=== PATIENT | male | born 1990 | race Caucasian/White ===

== ENCOUNTER 2024-04-09 08:27 | Inpatient (IN) ==
--- NOTE | 2024-04-09 08:53 | Emergency Department Note ---
Impression & Plan Seizure, Alcohol withdrawal, Tachycardia, Narcotic addiction ED Provider Note NAME: RADHA ADDISON AGE: 33 SEX: M : 1990 ARRIVES VIA: Ambulance INFORMANT: [Patient][ems, nursing] ED PROVIDER(S): [Braulio Flannery MD] CHIEF COMPLAINT: Seizure HISTORY OF PRESENT ILLNESS: The patient is a 33-year-old male who presents to the ED after a reported seizure. The patient was on his way to the methadone clinic when he began having all over body shaking. The patient is amnestic of the event and still feels somewhat confused although, he thinks things are starting to clear. The patient does have a seizure history, he is to take Keppra, he does not think he took his morning Keppra dose. The patient has had seizures secondary to alcohol withdrawal. He last had alcohol yesterday and he does feel as if he is going through some alcohol withdrawal. There has been no cough or cold, no fever. He currently complains of some lower back pain, there is no headache, no abdominal pain. EMS did give 2 mg of IV Ativan, this seemed to help him greatly. PMHx/PSHx/Social Hx: See Below PHYSICAL EXAM: GENERAL: Patient is in no acute distress. HEENT: No acute trauma, normocephalic atraumatic, mucous membranes moist, no nasal congestion. No obvious tongue bite. NECK: No stridor, no adenopathy, no meningismus, trachea is midline. LUNGS: Clear to auscultation bilaterally, no wheeze, no rhonchi, breath sounds equal. HEART: Tachycardic, regular rhythm, no murmurs. ABDOMEN: Soft, nontender, no peritonitis. EXTREMITIES: No cyanosis, full range of motion of all the joints without pain or difficulty. NEUROLOGIC: No speech slur, awake and alert, no acute motor or sensory deficits, no focal weakness. SKIN: No jaundice, no diaphoresis. DIFFERENTIAL DIAGNOSIS: Seizure, withdrawal, dehydration, electrolyte imbalance, dysrhythmia, medication noncompliance, among others. EMERGENCY DEPARTMENT PROCEDURES: MEDICAL DECISION MAKING: There is no leukocytosis. A mild anemia was seen. There was a normal platelet count. No renal failure or significant electrolyte abnormality. No concerning liver enzyme elevation. Total CK was not elevated making rhabdomyolysis unlikely. ECG showed a sinus tachycardia, no obvious ischemia. Cardiac enzyme testing x 1 was not consistent with acute cardiac injury. Chest x-ray did not show mediastinal widening, pneumonia or pneumothorax. Brain CT showed no acute bleed or mass effect. Alcohol level was elevated at 108. On exam, the patient was tachycardic and seemed slightly agitated. The patient appears to be suffering from alcohol withdrawal. He may have had a seizure from his alcohol withdrawal or from lack of medication compliance. Patient was aggressively managed. He was given a 500 cc saline bolus. He was given a liter of IV saline with multivitamins, thiamine and folate. He was given his typical dose of oral methadone. He received 2000 mg of IV Keppra, he was given 5 mg of IV Valium. The patient is doing well with the medication administered. He presents with seizure-like activity and likely alcohol withdrawal. The patient is in need of a hospital stay. I did speak with case management, the on-call hospitalist has been consulted. Patient does appear to be more comfortable since treatment here in the ED. No further seizure activity noted. Prior/Outside records/notes reviewed: Today's EMS notes describing his presentation and transport to this hospital. ECG per my interpretation: Indication was seizure. The ECG shows a sinus tachycardia with a rate of 110. There is no acute ST elevation, no PVCs but the QTc is 452 Continuous Cardiac Monitoring per my interpretation: An order was placed for continuous cardiac monitoring. The monitor shows a rate of 118 with sinus tachycardia. Imaging/x-ray results per my interpretation: Chest x-ray does not show mediastinal widening, pneumonia or pneumothorax. Chronic Medical/Social conditions affecting care: Narcotic and alcohol abuse, history of seizure Care/Management discussed with: Case management, the on-call hospitalist. Level of care consideration(s): After review of the information above and other included data: --I believe the patient requires escalation of care to admission Critical Care Note: I have personally spent 41 minutes of critical care time in the direct management of this patient. This includes bedside care, interpretation of diagnostic studies, and testing, discussion with consultants, patient, and family members, and other required patient management activities. This 41 minutes is in excess of all separately billable procedures. DISPOSITION: Admission Past Med/Surg History Problem List Narcotic addiction (Acute) Tachycardia (Acute) Alcohol withdrawal (Acute) Seizure (Acute) Alcohol withdrawal Seizure Depression Essential hypertension Methadone dependence Alcohol abuse Medical History Cirrhosis of liver without ascites Pancreatitis Delirium tremens Latent tuberculosis by blood test Suicide attempt Alcohol withdrawal seizure Surgical History S/P repair of hydrocele S/P laparoscopic cholecystectomy Family History Other Diabetes Heart disease Hypertension Social History Smoking Status: Current every day smoker Tobacco Type: Cigarettes Do You Dip or Chew Tobacco: No; Hx Alcohol Use: Yes Alcohol type: hard liquor Hx Substance Use: Yes Last Used Substance: Just Prior to Arrival Last Used Substance Other:: pt on methadone. States he did smoke marijuana recently Preferred Language: Maori Communication Ability: Effective Technology Lab Teacher Required: No Beliefs That Will Affect Care: None Current Living Situation: Family Other Information That Helps Us Care for You: No Feels Safe at Home: Yes Safety Concerns: Feels Safe At This Time Assistive Devices: None Allergies Allergies Allergy/AdvReac Type Severity Reaction Status Date / Time No Known Allergies Allergy Unverified 06/26/11 23:42 Home Meds Home Medications Medication Instructions Recorded Confirmed acamprosate 333 mg tablet,delayed 666 mg PO TID 04/09/24 04/09/24 release albuterol sulfate 90 mcg/actuation 2 puff inhalation Q4H PRN 04/09/24 04/09/24 aerosol inhaler Shortness Of Breath Or Wheezing bupropion HCl 150 mg 24 hr tablet, 150 mg PO DAILY 04/09/24 04/09/24 extended release buspirone 10 mg tablet 10 mg PO BID PRN Anxiety 04/09/24 04/09/24 cyanocobalamin (vitamin B-12) 1,000 mcg PO DAILY 04/09/24 04/09/24 1,000 mcg tablet (Vitamin B-12) famotidine 40 mg tablet 40 mg PO DAILY 04/09/24 04/09/24 furosemide 40 mg tablet 40 mg PO DAILY 04/09/24 04/09/24 gabapentin 600 mg tablet 600 mg PO QID 04/09/24 04/09/24 lactulose 10 gram/15 mL oral 30 ml PO BID PRN Constipation 04/09/24 04/09/24 solution levetiracetam 500 mg tablet 750 mg PO BID 04/09/24 04/09/24 methadone 10 mg/5 mL oral solution 109 mg PO DAILY 04/09/24 04/09/24 metoprolol succinate 25 mg 25 mg PO DAILY 04/09/24 04/09/24 tablet,extended release 24 hr mirtazapine 15 mg tablet 15 mg PO HS 04/09/24 04/09/24 omeprazole 40 mg capsule,delayed 40 mg PO DAILY 04/09/24 04/09/24 release potassium chloride 20 mEq 20 meq PO DAILY 04/09/24 04/09/24 tablet,extended release(part/cryst) sucralfate 100 mg/mL oral 10 ml PO QID 04/09/24 04/09/24 suspension thiamine HCl (vitamin B1) 50 mg 100 mg PO DAILY 04/09/24 04/09/24 tablet Results & Data (ED) Vital Signs Vital Signs - 24 hr 04/09/24 08:44 04/09/24 08:48 04/09/24 08:49 Temperature 36.9 C Temperature Source Temporal Artery Scan Pulse Rate 118 H 117 H 124 H Pulse Rate from SpO2 Sensor Respiratory Rate 20 28 H Respiratory Depth Shallow Blood Pressure 123/86 Blood Pressure Mean 98 Pulse Oximetry 98 Oxygen Delivery Method Room Air Sepsis Recent Fever Within 48 Hours No Sepsis New/Unexplained Change in Mental Status No Sepsis Action Taken by Nursing No Action Required 04/09/24 09:03 04/09/24 09:33 04/09/24 10:00 Temperature Temperature Source Pulse Rate 103 H 104 H 97 H Pulse Rate from SpO2 Sensor 108 H 96 H Respiratory Rate 15 18 20 Respiratory Depth Blood Pressure Blood Pressure Mean Pulse Oximetry 81 L 95 Oxygen Delivery Method Sepsis Recent Fever Within 48 Hours Sepsis New/Unexplained Change in Mental Status Sepsis Action Taken by [facility]itentiary Medications Current Medication List: was personally reviewed by me Laboratory Data Attestation: I reviewed the patient's lab results. 04/09/24 08:40 04/09/24 08:40 Lab Results 04/09/24 Range/Units 08:40 WBC 4.45 L (4.8-10.8) K/ul RBC 3.64 L (4.70-6.10) M/uL Hgb 12.0 L (14.0-18.0) g/dl Hct 36.1 L (42.0-52.0) % MCV 99.2 (80.0-100.0) fL MCH 33.0 (25.0-34.0) pg MCHC 33.2 (32.0-36.0) g/dL RDW Std Deviation 58.9 H (36.4-46.3) fL RDW Coeff of [place] 16.0 H (11.5-14.5) % Plt Count 302 (130-400) K/uL MPV 8.8 L (9.4-12.4) fL Immature Gran % (Auto) 0.4 % Neut % (Auto) 66.1 % Lymph % (Auto) 28.1 % [place] % (Auto) 4.3 % Eos % (Auto) 0.9 % Baso % (Auto) 0.2 % Neut # (Auto) 2.94 (1.40-6.50) K/uL Lymph # (Auto) 1.25 (1.20-3.40) K/uL [place] # (Auto) 0.19 (0.11-0.59) K/uL Eos # (Auto) 0.04 (0.00-0.50) K/uL Baso # (Auto) 0.01 (0.00-0.20) K/uL Immature Gran # (Auto) 0.02 (0.01-0.20) K/uL Sodium 143 (136-145) mmol/L Potassium 3.6 (3.5-5.1) mmol/L Chloride 107 (98-107) mmol/L Carbon Dioxide 22 (21-32) mmol/L Anion Gap 14 H (3-11) BUN 5 L (6-23) mg/dl Creatinine 0.68 (0.6-1.4) mg/dl Est Cr Clr Drug Dosing 176.5 ml/min Est GFR ( Amer) 143.4 ml/min Est GFR (Non-Af Amer) 123.7 ml/min BUN/Creatinine Ratio 7.4 L (10-20) Glucose 153 H (70-99(Fasting)) mg/dl Calcium 9.0 (8.6-10.3) mg/dl Magnesium 1.9 (1.7-2.4) mg/dl Total Bilirubin 0.3 (0.2-1.0) mg/dl AST 39 (13-39) U/L ALT 33 (7-52) U/L Alkaline Phosphatase 89 (34-104) U/L Total Creatine Kinase 217 (30-223) U/L Troponin I High Sens 4.6 (0-20) pg/ml Total Protein 7.5 (6.0-8.3) gm/dl Albumin 4.3 (3.4-5.0) gm/dl Globulin 3.2 (2.5-4.0) gm/dl Albumin/Globulin Ratio 1.3 (0.9-2) Prolactin 14.90 ng/ml Ethyl Alcohol mg/dL 108.1 H (<10.0) mg/dl Administered Medications Pantoprazole Sodium 40 mg/ (Syringe) 10 mls @ 5 mls/min IV DAILY@1100 [facility] Stop: 05/09/24 12:22 Last Admin: 04/09/24 13:05 Dose: 5 mls/min Documented By: SHARLA Phenobarbital Sodium (Phenobarbital Sodium 65 Mg/Ml Vial) 65 mg IV Q6H PRN PRN Reason: AWSS greater than 8 Stop: 04/13/24 23:59 Last Admin: 04/09/24 14:33 Dose: 65 mg Documented By: REHAN Sucralfate (Sucralfate 1 Gm/10 Ml Udc) 1 gm PO QID [facility] Stop: 05/09/24 12:59 Last Admin: 04/09/24 13:05 Dose: 1 gm Documented By: SHARLA Discontinued Medications Diazepam (Diazepam 5 Mg/Ml 10ml Vial) 5 mg IV NOW STA Stop: 04/09/24 08:43 Last Admin: 04/09/24 08:59 Dose: 5 mg Documented By: REHAN Sodium Chloride (Nss) 500 mls @ 999 mls/hr IV .Q31M ONE Stop: 04/09/24 09:12 Last Infusion: 04/09/24 10:05 Dose: Infused Documented By: Admin: 04/09/24 09:00 Dose: 999 mls/hr Documented By: REHAN Multivitamins 10 ml/ Thiamine HCl 100 mg/ Folic Acid 1 mg/Sodium Chloride 1,011.2 mls @ 500 mls/hr IV .Q2H2M ONE Stop: 04/09/24 10:43 Last Infusion: 04/09/24 12:04 Dose: Infused Documented By: Admin: 04/09/24 09:52 Dose: 500 mls/hr Documented By: REHAN Levetiracetam (Levetiracetam 500 Mg/5 Ml Vial) 2,000 mg IV NOW STA Stop: 04/09/24 08:43 Last Admin: 04/09/24 08:59 Dose: 2,000 mg Documented By: REHAN Methadone HCl (Methadone Oral Soln 2 Mg/Ml) 109 mg PO NOW ONE Stop: 04/09/24 09:46 Last Admin: 04/09/24 09:52 Dose: 109 mg Documented By: REHAN Phenobarbital (Phenobarbital Po Alcohol Withdrawal) 1 each PO NOW STA; Protocol Stop: 04/09/24 10:24 Last Admin: 04/09/24 13:15 Dose: Not Given Documented By: REHAN Phenobarbital Sodium (Phenobarbital Sodium 65 Mg/Ml Vial) 130 mg IV NOW STA Stop: 04/09/24 10:24 Last Admin: 04/09/24 12:03 Dose: 130 mg Documented By: REHAN Imaging Data Radiologist's Impression: Chest X-Ray 04/09/24 08:43 SINGLE VIEW CHEST CLINICAL HISTORY: Generalized weakness. FINDINGS: 2 AP, portable, upright chest radiographs are obtained. No prior studies are available for comparison at the time of dictation. The examination is degraded by portable technique and apical lordotic positioning. The cardiomediastinal silhouette is unremarkable. The lungs and pleural spaces are clear. No pneumothorax is seen. The bony thorax is grossly intact. IMPRESSION: No active disease in the chest. ACT 112: Negative or not required by law. Electronically signed by: Braulio Leiva M.D. 04/09/2024 9:[address] 04/09/24 09:57 CT head/brain wo con CLINICAL HISTORY: seizure, grijalva Technique: Contiguous axial CT images of the head were acquired from the base of the skull to the vertex without intravenous contrast administration. Images were viewed in brain, subdural and bone windows. Automated dose lowering techniques and/or adjustment according to patient size were utilized for this exam. Comparison: None available at the time of this dictation. Findings: The ventricles, basal cisterns, and cerebral sulci are normal. There is no acute intracranial hemorrhage or evidence of acute territorial infarction. Neither mass effect, shift of the midline structures, nor abnormal extra-axial fluid collections are shown. Imaged portions of the paranasal sinuses and mastoid air cells are clear. The orbits appear normal. There are no acute fractures of the calvaria or scalp swelling. Impression: No acute intracranial hemorrhage, no evidence of acute territorial infarction or other acute intracranial disease process. ACT 112: Negative or not required by law. Electronically signed by: Kristian Franklin M.D. 04/09/2024 10:27 AM Discharge Plan Visit Data Chief Complaint: Seizure ED Provider: Braulio Flannery Discharge Problem: Seizure, Alcohol withdrawal, Tachycardia, Narcotic addiction Patient Disposition: Admitted As Inpatient Condition: Fair Discharge Problem: Alcohol withdrawal Qualifiers: Complication of substance-induced condition: with unspecified complication Q ualified Code(s): F10.939 - Alcohol use, unspecified with withdrawal, unspecified
[2024-04-09] MEDS: diazePAM 5 MG/ML 10ML VIAL IV STA (08:59)
[2024-04-09] MEDS: levETIRAcetam 500 MG/5 ML VIAL IV STA (08:59)
[2024-04-09] MEDS: SODIUM CHLORIDE 0.9% 500 ML IV ONE (09:00)
[2024-04-09 09:15] LABS: Basophils # (auto) 0.01 K/uL (0.00-0.20); Basophils % (auto) 0.2 %; Eosinophils # (auto) 0.04 K/uL (0.00-0.50); Eosinophils % (auto) 0.9 %; Hematocrit (blood only) 36.1 % (42.0-52.0); Immature Granulocytes # (auto) 0.02 K/uL (0.01-0.20); Immature Granulocytes % (auto) 0.4 %; Lymphocytes # (auto) 1.25 K/uL (1.20-3.40); Lymphocytes % (auto) 28.1 %; Mean Corpuscular Hgb Conc 33.2 g/dL (32.0-36.0); Mean Corpuscular Volume 99.2 fL (80.0-100.0); Mean Platelet Volume 8.8 fL (9.4-12.4); Monocytes # (auto) 0.19 K/uL (0.11-0.59); Monocytes % (auto) 4.3 %; Neutrophils # (auto) 2.94 K/uL (1.40-6.50); Neutrophils % (auto) 66.1 %; Platelet Count 302 K/uL (130-400); RDW Standard Deviation 58.9 fL (36.4-46.3); Red Blood Count 3.64 M/uL (4.70-6.10); White Blood Count 4.45 K/ul (4.8-10.8)
--- NOTE | 2024-04-09 09:21 | XRay Report ---
SINGLE VIEW CHEST CLINICAL HISTORY: Generalized weakness. FINDINGS: 2 AP, portable, upright chest radiographs are obtained. No prior studies are available for comparison at the time of dictation. The examination is degraded by portable technique and apical cedric dotic positioning. The cardiomediastinal silhouette is unremarkable. The lungs and pleural spaces are clear. No pneumothorax is seen. The bony thorax is grossly intact. IMPRESSION: No active disease in the chest. ACT 112: Negative or not required by law. Electronically signed by: Braulio Leiva M.D. 04/09/2024 9:20 AM
--- NOTE | 2024-04-09 09:23 | Pharmacy Report ---
ED Pharmacist Progress Note - ED Pharmacist Progress Note Date of Service:: April 09, 2024 Notes:: Confirmed with [facility]- Methadone dose 109 mg daily. Last dose yesterday 04/08/24.
[2024-04-09 09:27] LABS: Albumin Globulin Ratio 1.3 (0.9-2); Albumin Level 4.3 gm/dl (3.4-5.0); BUN Creatinine Ratio 7.4 (10-20); Bilirubin,Total 0.3 mg/dl (0.2-1.0); Creatinine Clr Calc Pharmacy 176.5 ml/min; Est GFR (African American) 143.4 ml/min; Est GFR (Non-African American) 123.7 ml/min; Globulin 3.2 gm/dl (2.5-4.0); Magnesium 1.9 mg/dl (1.7-2.4); Potassium 3.6 mmol/L (3.5-5.1); Total Protein 7.5 gm/dl (6.0-8.3)
[2024-04-09] MEDS ORDERED: METHADONE ORAL SOLN 2 MG/ML PO ONE (09:30)
[2024-04-09 09:34] LABS: Troponin I High Sensitivity 4.6 pg/ml (0-20)
[2024-04-09] MEDS: METHADONE ORAL SOLN 2 MG/ML PO ONE (09:52)
[2024-04-09] MEDS: MULTI-VITAMIN INFUSION 10 ML, THIAMINE HCL 100 MG, FOLIC ACID 1 MG in SODIUM CHLORIDE 0... IV ONE (09:52)
--- NOTE | 2024-04-09 10:03 | History & Physical Report ---
Date of Service April 09, 2024 Assessment & Plan (1) Seizure: Plan: This is a 33 y/o male with cirrhosis, hx EtOH withdrawal/DTs, EtOH abuse, portal HTN, HTN, and chronic methadone use who presented to the ED today after having a seizure this AM on the way to the methadone clinic. Pt has a history of alcohol- withdrawal seizures and DTs but denies history of epilepsy. Pt's last drink was yesterday, but he reports drinking significantly less EtOH yesterday than his baseline as he was trying to cut back. Symptoms of withdrawal started last night per his recollection, and he has missed doses of his routine medications. Seizure this morning seems most likely related to EtOH withdrawal, missed dose(s) of Keppra and other medications. No acute pathology on CT brain. - Admit to PCU - Seizure precautions - Will continue Keppra for now - Labs in the AM - CBC, BMP, Mg, Phos, LFTs, INR (2) Alcohol withdrawal: Plan: - Phenobarbital alcohol withdrawal protocol - Ativan IV withdrawal protocol as pt has had difficult to manage withdrawal symptoms previously requiring ICU admission - pt reports "I have a high tolerance for medications" - Eventual psychiatry evaluation (pt agreeable) but will hold off until mental status more clear - Thiamine, folic acid daily - Daily PPI (3) Alcohol abuse: Plan: Chronic, has been to rehab previously and is interested in returning Consult case management for assistance (4) Methadone dependence: Plan: Chronic, stable Continue daily methadone as taking outpatient (5) Essential hypertension: Plan: Chronic, stable Continue metoprolol with holds (6) Depression: Plan: Chronic, not well-controlled per patient Continue home meds Psychiatry evaluation as already discussed Plan Pt seen and reviewed with collaborating physician, Dr. Herbert. Plan of care discussed and as outlined above. Code Status: Full code DVT Prophylaxis: Lovenox Dispo: PCU for now; if deteriorating condition, may need transfer to ICU Bon Soctt PA-C History of Present Illness Chief Complaint: Seizure Primary Care Provider: Dale Valiente PA-C This is a 33 y/o male with cirrhosis, hx EtOH withdrawal/DTs, EtOH abuse, portal HTN, HTN, and chronic methadone use who presented to the ED today after having a seizure this AM on the way to the methadone clinic. History is obtained from the patient and from review of [facility] records including recent admission to [facility]. Of note, he was admitted to [facility] 03/19-03/29/24 for alcohol withdrawal and delirium. He spent several days in the ICU and was on phenobarbital, Precedex, Seroquel and prn Geodon for agitation, DTs/alcohol withdrawal. Seen by addiction medicine and psychiatry who recommended starting acamprosate on discharge. Per records, pt was discharged to inpatient alcohol rehab at [facility]. It is unclear how long pt was at [facility] or why he was discharged. Review of prescriptions show multiple scripts sent by a provider at [facility] on 04/04. Pt, however, states that he was discharged directly home from [facility]. Since being home, pt reports immediately starting to drink EtOH again. He has been drinking a fifth of vodka daily. Yesterday, he drank less than usual because he was trying to cut back but noticed last night that he started to become tremulous. He did not have any alcohol this morning. On the way to the methadone clinic, he reportedly had a generalized tonic-clonic seizure in the van en route so EMS was called. He received lorazepam 2 mg in the field, which seemed to help with his symptoms. He denies a history of epilepsy, stating that his seizures have always been related to alcohol withdrawal. Review of medications prescribed last week shows a script for Keppra 750 mg BID, which pt reports not taking today or last night because of feeling ill. He reports significant depression, which he has been working with a therapist for and taking medications. He admits to suicidal ideations when he is intoxicated but denies at present repeatedly stating "I want to live" and "I just want to get better" throughout the conversation. Allergies Allergy/AdvReac Type Severity Reaction Status Date / Time No Known Allergies Allergy Unverified 06/26/11 23:42 Home Medications Medication Instructions Recorded Confirmed Type acamprosate 333 mg tablet,delayed 666 mg PO TID 04/09/24 04/09/24 History release albuterol sulfate 90 mcg/actuation 2 puff inhalation Q4H PRN 04/09/24 04/09/24 History aerosol inhaler Shortness Of Breath Or Wheezing bupropion HCl 150 mg 24 hr tablet, 150 mg PO DAILY 04/09/24 04/09/24 History extended release buspirone 10 mg tablet 10 mg PO BID PRN Anxiety 04/09/24 04/09/24 History cyanocobalamin (vitamin B-12) 1,000 mcg PO DAILY 04/09/24 04/09/24 History 1,000 mcg tablet (Vitamin B-12) famotidine 40 mg tablet 40 mg PO DAILY 04/09/24 04/09/24 History furosemide 40 mg tablet 40 mg PO DAILY 04/09/24 04/09/24 History gabapentin 600 mg tablet 600 mg PO QID 04/09/24 04/09/24 History lactulose 10 gram/15 mL oral 30 ml PO BID PRN Constipation 04/09/24 04/09/24 History solution levetiracetam 500 mg tablet 750 mg PO BID 04/09/24 04/09/24 History methadone 10 mg/5 mL oral solution 109 mg PO DAILY 04/09/24 04/09/24 History metoprolol succinate 25 mg 25 mg PO DAILY 04/09/24 04/09/24 History tablet,extended release 24 hr mirtazapine 15 mg tablet 15 mg PO HS 04/09/24 04/09/24 History omeprazole 40 mg capsule,delayed 40 mg PO DAILY 04/09/24 04/09/24 History release potassium chloride 20 mEq 20 meq PO DAILY 04/09/24 04/09/24 History tablet,extended release(part/cryst) sucralfate 100 mg/mL oral 10 ml PO QID 04/09/24 04/09/24 History suspension thiamine HCl (vitamin B1) 50 mg 100 mg PO DAILY 04/09/24 04/09/24 History tablet Past Med/Surg History Problem List Alcohol withdrawal Seizure Depression Essential hypertension Methadone dependence Alcohol abuse Medical History (Updated 04/09/24 @ 11:47 by Felecia Scott PA-C) Cirrhosis of liver without ascites Pancreatitis Delirium tremens Latent tuberculosis by blood test Suicide attempt Alcohol withdrawal seizure Surgical History S/P repair of hydrocele S/P laparoscopic cholecystectomy Family History Other Diabetes Heart disease Hypertension Social History (Updated 04/09/24 @ 11:30 by Felecia Tyler, PA-C) Smoking Status: Former smoker Hx Alcohol Use: Yes Hx Substance Use: Yes (former use - last use > 10 yrs ago, on chronic methadone ) Feels Safe at Home: Yes Review of Systems Review of Systems: Limited due to confusion at times, difficulty with memory - see HPI Physical Exam Physical Exam: General: awake, alert, confused at times, NAD HEENT: PERRL, no scleral icterus, moist oral mucosa, tongue midline Neck: supple, trachea midline Heart: regular but tachycardic Lungs: CTA on the anterior bilaterally, no W/R/R Abdomen: soft, NT, +BS Extremities: distal pulses intact and equal, no pedal edema Skin: warm, dry, no jaundice Neurologic: tremulous, moving all extremities, speech slow but no dysarthria Psych: anxious, flat affect, limited insight Results & Data Results & Data Vital Signs (Past 12 Hours) Vital Signs Temp Pulse Resp BP Pulse Ox O2 Del Method 04/09/24 08:49 36.9 C 124 H 28 H 123/86 98 Room Air 04/09/24 08:44 118 H Laboratory Results Lab Results 04/09/24 Range/Units 08:40 WBC 4.45 L (4.8-10.8) K/ul RBC 3.64 L (4.70-6.10) M/uL Hgb 12.0 L (14.0-18.0) g/dl Hct 36.1 L (42.0-52.0) % MCV 99.2 (80.0-100.0) fL MCH 33.0 (25.0-34.0) pg MCHC 33.2 (32.0-36.0) g/dL RDW Std Deviation 58.9 H (36.4-46.3) fL RDW Coeff of Lurdes 16.0 H (11.5-14.5) % Plt Count 302 (130-400) K/uL MPV 8.8 L (9.4-12.4) fL Immature Gran % (Auto) 0.4 % Neut % (Auto) 66.1 % Lymph % (Auto) 28.1 % Sandoval % (Auto) 4.3 % Eos % (Auto) 0.9 % Baso % (Auto) 0.2 % Neut # (Auto) 2.94 (1.40-6.50) K/uL Lymph # (Auto) 1.25 (1.20-3.40) K/uL Sandoval # (Auto) 0.19 (0.11-0.59) K/uL Eos # (Auto) 0.04 (0.00-0.50) K/uL Baso # (Auto) 0.01 (0.00-0.20) K/uL Immature Gran # (Auto) 0.02 (0.01-0.20) K/uL Sodium 143 (136-145) mmol/L Potassium 3.6 (3.5-5.1) mmol/L Chloride 107 (98-107) mmol/L Carbon Dioxide 22 (21-32) mmol/L Anion Gap 14 H (3-11) BUN 5 L (6-23) mg/dl Creatinine 0.68 (0.6-1.4) mg/dl Est Cr Clr Drug Dosing 176.5 ml/min Est GFR ( Amer) 143.4 ml/min Est GFR (Non-Af Amer) 123.7 ml/min BUN/Creatinine Ratio 7.4 L (10-20) Glucose 153 H (70-99(Fasting)) mg/dl Calcium 9.0 (8.6-10.3) mg/dl Magnesium 1.9 (1.7-2.4) mg/dl Total Bilirubin 0.3 (0.2-1.0) mg/dl AST 39 (13-39) U/L ALT 33 (7-52) U/L Alkaline Phosphatase 89 (34-104) U/L Total Creatine Kinase 217 (30-223) U/L Troponin I High Sens 4.6 (0-20) pg/ml Total Protein 7.5 (6.0-8.3) gm/dl Albumin 4.3 (3.4-5.0) gm/dl Globulin 3.2 (2.5-4.0) gm/dl Albumin/Globulin Ratio 1.3 (0.9-2) Ethyl Alcohol mg/dL 108.1 H (<10.0) mg/dl Diagnostic Findings Chest X-Ray 04/09/24 08:43 SINGLE VIEW CHEST CLINICAL HISTORY: Generalized weakness. FINDINGS: 2 AP, portable, upright chest radiographs are obtained. No prior studies are available for comparison at the time of dictation. The examination is degraded by portable technique and apical lordotic positioning. The cardiomediastinal silhouette is unremarkable. The lungs and pleural spaces are clear. No pneumothorax is seen. The bony thorax is grossly intact. IMPRESSION: No active disease in the chest. ACT 112: Negative or not required by law. Electronically signed by: Braulio Leiva M.D. 04/09/2024 9:20 AM Medications Administered Multivitamins 10 ml/ Thiamine HCl 100 mg/ Folic Acid 1 mg/Sodium Chloride 1, 011.2 mls @ 500 mls/hr IV .Q2H2M ONE Stop: 04/09/24 10:43 Last Admin: 04/09/24 09:52 Dose: 500 mls/hr Documented By: REHAN Discontinued Medications Diazepam (Diazepam 5 Mg/Ml 10ml Vial) 5 mg IV NOW STA Stop: 04/09/24 08:43 Last Admin: 04/09/24 08:59 Dose: 5 mg Documented By: REHAN Sodium Chloride (Nss) 500 mls @ 999 mls/hr IV .Q31M ONE Stop: 04/09/24 09:12 Last Admin: 04/09/24 09:00 Dose: 999 mls/hr Documented By: REHAN Levetiracetam (Levetiracetam 500 Mg/5 Ml Vial) 2,000 mg IV NOW STA Stop: 04/09/24 08:43 Last Admin: 04/09/24 08:59 Dose: 2,000 mg Documented By: REHAN Methadone HCl (Methadone Oral Soln 2 Mg/Ml) 109 mg PO NOW ONE Stop: 04/09/24 09:46 Last Admin: 04/09/24 09:52 Dose: 109 mg Documented By: REHAN Supervising Physician Co-Signing Physician Notes Patient was seen and examined with Felecia WEINER at bedside. Chart reviewed. Case discussed with Felecia WEINER and agree with the documentation above. In summary, this is a 33 year old with history of complicated alcohol withdrawal with seizures, on methadone, depression/anxiety, BLAISE, hepatic steatosis, h/o recurrent admissions for alcohol withdrawal with recent one being 03/19- at [facility] requiring ICU stay with phenobarb taper, precedex, benzos and discharged on 03/29 to [facility] presented to the ED with alcohol withdrawal seizure. Given ativan by EMS along with valium, keppra, banana bag and methadon in ED. During our encounter, he is awake alert and states he is still having shaking and going through withdrawal. He seems confused as he states he did not go to [facility] from [facility]. He states he has been drinking 1/5th of vodka and his last drink was yesterday. His alcohol level was in 200s. Given his complicated history and concern for complicated withdrawal, will start on phenobarb taper and prn phenobarb- if that still does not help, will have iv ativan prn. Will have low threshold for transfer to ICU if worsens. Continue thiamine, folate, multivitamin. He states he wants to get better and is willing to do anything to help. Agreeable to psych evaluation as well as looks forward to going to inpatient alcohol rehab when stable. Vitals, labs, imaging noted. Rest as per the note above. On exam- General: Lying comfortably in bed, not in distress, on room air HEENT: EOMI, MAYTE, MMM Chest: Clear breath sounds bilaterally, no wheezes or crackles CVS: Tachycardic, no murmur Abdomen: Soft, non tender, not distended, normal bowel sounds Neuro: Awake, alert, confused, conversing well, non focal Extremities: Tremors +. No edema Psych: Anxious, limited insight, cooperative (2) Alcohol withdrawal Complication of substance-induced condition: with unspecified complication Qualified Code(s): F10.939 - Alcohol use, unspecified with withdrawal, unspecified (6) Depression Active/Remission status: remission status unspecified Depression Type: major depressive disorder Major depression recurrence: unspecified whether recurrent Qualified Code(s): F32.9 - Major depressive disorder, single episode, unspecified
[2024-04-09] MEDS ORDERED: LORazepam 3 MG in SYRINGE 1.5 ML IV PRN (10:23)
[2024-04-09] MEDS ORDERED: Ativan IV Alcohol Withdrawal--Active Protocol IV PRN (10:23)
--- NOTE | 2024-04-09 10:29 | CT Scan Report ---
CT head/brain wo con CLINICAL HISTORY: seizure, grijalva Technique: Contiguous axial CT images of the head were acquired from the base of the skull to the brent ebonie without intravenous contrast administration. Images were viewed in brain, subdural and [facility]. Automated dose lowering techniques and/or adjustment according to patient size were utilized for this exam. Comparison: None available at the time of this dictation. Findings: The ventricles, basal cisterns, and cerebral sulci are normal. There is no acute intracranial hemorrh age or evidence of acute territorial infarction. Neither mass effect, shift of the midline structures , nor abnormal extra-axial fluid collections are shown. Imaged portions of the paranasal sinuses and mastoid air cells are clear. The orbits appear normal. There are no acute fractures of the calvaria or scalp swelling. Impression: No acute intracranial hemorrhage, no evidence of acute territorial infarction or other acute intracra nial disease process. ACT 112: Negative or not required by law. Electronically signed by: Kristian Franklin M.D. 04/09/2024 10:27 AM
[2024-04-09] MEDS ORDERED: PHENobarbital sodium 65 MG/ML VIAL IV PRN (10:39)
--- NOTE | 2024-04-09 11:45 | Electrocardiogram Report ---
Test Reason : Blood Pressure : / mmHG Vent. Rate : 110 BPM Atrial Rate : 110 BPM P-R Int : 114 ms QRS Dur : 084 ms QT Int : 334 ms P-R-T Axes : 074 030 042 degrees QTc Int : 452 ms Sinus tachycardia Otherwise normal ECG When compared with ECG of 27-JUN-2011 00:33, No significant change was found Confirmed by Rigoberto Akhtar ([id number]) on 04/09/2024 11:44:30 AM Referred By: Confirmed By:Rigoberto Akhtar
[2024-04-09] MEDS: PHENobarbital sodium 65 MG/ML VIAL IV STA (12:03)
[2024-04-09] MEDS ORDERED: ALBUTEROL HFA 8 GM INHALER INH PRN (12:23)
[2024-04-09] MEDS ORDERED: LACTULOSE SYRUP 20 GM/30 ML UDC PO PRN (12:29)
[2024-04-09] MEDS: SUCRALFATE 1 GM/10 ML UDC PO SCH (13:05)
[2024-04-09] MEDS: PANTOprazole 40 MG in SYRINGE 0 ML IV SCH (13:05)
[2024-04-09] MEDS: PHENobarbital PO Alcohol Withdrawal PO STA (13:15)
[2024-04-09] MEDS: PHENobarbital sodium 65 MG/ML VIAL IV PRN (14:33)
[2024-04-09] MEDS: LORazepam 1 MG/1 ML SYR ED Inj Use ONE (16:22)
[2024-04-09] MEDS: LORazepam 1 MG in SYRINGE 0.5 ML IV PRN (16:40)
[2024-04-09] MEDS: LORazepam 2 MG in SYRINGE 1 ML IV PRN (18:03)
[2024-04-09 20:13] LABS: Appearance Urine Clear (Clear); Bilirubin Urine Negative (Negative); Blood Urine Negative (Negative); Color Urine Yellow; Glucose Urine UA Negative (Negative); Ketones Urine Negative (Negative); Leukocyte Esterase Urine Negative (Negative); Nitrite Urine Negative (Negative); Protein Urine Negative (Negative); Specific Gravity Urine 1.021 (1.000-1.030); Urobilinogen Urine Negative (Negative); pH Urine 6.5 (4.5-7.5)
[2024-04-09] MEDS: levETIRAcetam 250 MG TAB PO SCH (20:14)
[2024-04-09] MEDS: MIRTAZAPINE TAB 15 MG TAB PO SCH (21:26)
[2024-04-09 21:42] LABS: Amphetamines+Metham, Urine Neg (Neg); Barbiturates, Urine Pos (Neg); Benzodiazepine, Urine Pos (Neg); Cocaine, Urine Neg (Neg); Fentanyl, Urine Neg (Neg); MDMA (Ecstacy), Urine Pos (Neg); Marijuana, Urine Pos (Neg); Methadone, Urine Pos (Neg); Opiate, Urine Neg (Neg); Phencyclidine, Urine Neg (Neg)
[2024-04-10] MEDS: PHENobarbitaL 30 MG TAB PO SCH (04:57)
[2024-04-10] MEDS: THIAMINE HCL 100 MG in SYRINGE 9 ML IV SCH (08:09)
[2024-04-10] MEDS: POTASSIUM CHLORIDE CRTAB 20 MEQ TABCR PO SCH (08:10)
[2024-04-10] MEDS: FAMOTIDINE 40 MG TABLET PO SCH (08:10)
[2024-04-10] MEDS: ENOXAPARIN INJ 40 MG/0.4 ML SYR SQ SCH (08:10)
[2024-04-10] MEDS: CYANOCOBALAMIN (B-12) 500 MCG TABLET PO SCH (08:10)
[2024-04-10] MEDS: FUROSEMIDE 40 MG TAB PO SCH (08:10)
[2024-04-10] MEDS: METOPROLOL SUCC 25MG EXT REL TAB PO SCH (08:10)
[2024-04-10] MEDS: FOLIC ACID 1 MG in SYRINGE 9.8 ML IV SCH (08:11)
[2024-04-10 08:12] LABS: Basophils # (auto) 0.02 K/uL (0.00-0.20); Basophils % (auto) 0.4 %; Eosinophils # (auto) 0.12 K/uL (0.00-0.50); Eosinophils % (auto) 2.1 %; Hematocrit (blood only) 32.8 % (42.0-52.0); Hemoglobin 10.8 g/dl (14.0-18.0); Immature Granulocytes # (auto) 0.02 K/uL (0.01-0.20); Immature Granulocytes % (auto) 0.4 %; Lymphocytes # (auto) 1.95 K/uL (1.20-3.40); Lymphocytes % (auto) 34.6 %; Mean Corpuscular Hemoglobin 32.7 pg (25.0-34.0); Mean Corpuscular Hgb Conc 32.9 g/dL (32.0-36.0); Mean Corpuscular Volume 99.4 fL (80.0-100.0); Mean Platelet Volume 8.8 fL (9.4-12.4); Monocytes # (auto) 0.41 K/uL (0.11-0.59); Monocytes % (auto) 7.3 %; Neutrophils # (auto) 3.12 K/uL (1.40-6.50); Neutrophils % (auto) 55.2 %; Platelet Count 229 K/uL (130-400); RDW Coefficient of Variation 15.9 % (11.5-14.5); RDW Standard Deviation 58.5 fL (36.4-46.3); White Blood Count 5.64 K/ul (4.8-10.8)
[2024-04-10 08:20] LABS: Albumin Level 3.3 gm/dl (3.4-5.0); BUN Creatinine Ratio 11.3 (10-20); Bilirubin,Total 0.3 mg/dl (0.2-1.0); Calcium 8.3 mg/dl (8.6-10.3); Creatinine Clr Calc Pharmacy 199.3 ml/min; Est GFR (Non-African American) 128.5 ml/min; Magnesium 1.9 mg/dl (1.7-2.4); Phosphorus 2.5 mg/dl (2.5-4.9); Potassium 3.2 mmol/L (3.5-5.1); Total Protein 5.7 gm/dl (6.0-8.3)
[2024-04-10 08:29] LABS: INR 0.9 (0.9-1.1); Prothrombin Time 10.2 Seconds (9.0-12.0)
[2024-04-10] MEDS: METHADONE ORAL SOLN 2 MG/ML PO SCH (08:39)
[2024-04-10] MEDS ORDERED: buPROPion XL 150 MG TABCR PO SCH (09:00)
[2024-04-10] MEDS: diazePAM 5 MG TABLET PO SCH (10:25)
--- NOTE | 2024-04-10 13:17 | Psychiatric Consultation ---
Date of Consultation April 10, 2024 Impression / Recommendations Impression Diagnostically consistent with alcohol use disorder. Positive MDMA screen very likely false positive due to Wellbutrin use. Acute risk of self-harm is low given denial of SI and motivated for substance use treatment. Chronic risk of self-harm and harm to others is slightly increased due to substance use with substance use treatment being the most significant modifiable risk factor to reduce acute and chronic risk. He is interested in residential treatment/rehab once medically stable. Given that Wellbutrin can lower seizure threshold, recommend holding this until he is through withdrawal. Will ensure he continues he other psychiatric medications including Buspar 10mg BID, mirtazapine (he reports this was recently increased to 30mg HS). Overall, I spent a total of 60 minutes with this case including review of chart records, review of labwork, review of EKG QTc, direct evaluation of the patient at bedside, counseling the patient, discussion of the patient with the hospitalist provider, discussion with the psychiatric liason during clinical rounds, review of collateral historian information from the family and documentation in the electronic health record. (1) Alcohol withdrawal: Complication of substance-induced condition: with unspecified complication Qualified Code(s): F10.939 - Alcohol use, unspecified with withdrawal, unspecified (2) Seizure: (3) Alcohol use disorder, severe, dependence: (4) Opioid use disorder, severe, on maintenance therapy: Plan -Continue AWSS as well as thiamine and folic acid -Defer to medical team but would consider restarting his prior to admission gabapentin as this will help reduce further seizures and sudden discontinuation can increase risk for seizures -Can restart acamprosate 666mg TID once family able to bring in home supply -Continue mirtazapine 30mg HS -Continue Buspar 10mg BID prn (typically works best as a scheduled medication but he has been using as a prn and finding beneficial so will continue this way for now) -Hold Wellbutrin XL 150mg qd while experiencing withdrawal, can restart once through withdrawal period (typically after ~96 hours) -Strong recommend residential substance use treatment, which he motivated for, once medically stable -For acute behavioral emergency: would use benzodiazepines as first line given setting of alcohol withdrawal. If benzodiazepines are not effective then could utilize haldol 5mg IM (Do not exceed 20mg in 24 hours, if doses required ensure ongoing monitoring of QTc) Psych History Identifying Data 33 yo man wiht a history of alcohol use disorder, opioid use disorder in sustained remission on methadone, HTN, cirrhosis admitted medically following seizure in context of alcohol withdrawal. Psychiatry consulted for medication recommendations given concern for potential medications lowering seizure threshold. Chief Complaint "It was really scary, it's never been that bad before". History of Present Illness Kwasi reports a long history of alcohol use with multiple prior residential treatment admissions (>8) and recent 10 day admission to [place]. Unfort unately shortly after discharge he relapsed and has been drinking about a fifth of vodka daily. He started to reduce his use and then had a seizure while [place] county [place] the way to his methadone clinic appointment yesterday. Today he reports ongoing symptoms of alcohol withdrawal. Notes history of significant withdrawal with agitated delirium in the past with hallucinations, agitation, aggression requiring ICU admission earlier this month at [facility]. He is currently on Wellbutrin, BuSpar, gabapentin, and mirtazapine. We discussed concerns about the potential for Wellbutrin to lower his seizure threshold and the combination of gabapentin with benzodiazepines and methadone for respiratory suppression. He also inquires about the continuation of his mirtazapine and the potential to restart Acamprosate after discharge. He denies any current suicidal ideation but admits to having thoughts of being "better off " in the past due to the repeated struggles with alcohol withdrawal. He expresses appreciation for being listened to and supported during his hospital stay. Feels his mood is stable, cites strong reasons for living including his fiancee and family. He wants to pursue inpatient residential substance use treatment again once medically stable. He has outpatient therapy weekly with [facility] and psychiatry at [facility]. Allergies Allergy/AdvReac Type Severity Reaction Status Date / Time No Known Allergies Allergy Unverified 06/26/11 23:42 Home Medications Medication Instructions Recorded Confirmed Type acamprosate 333 mg tablet,delayed 666 mg PO TID 04/09/24 04/09/24 History release albuterol sulfate 90 mcg/actuation 2 puff inhalation Q4H PRN 04/09/24 04/09/24 History aerosol inhaler Shortness Of Breath Or Wheezing bupropion HCl 150 mg 24 hr tablet, 150 mg PO DAILY 04/09/24 04/09/24 History extended release buspirone 10 mg tablet 10 mg PO BID PRN Anxiety 04/09/24 04/09/24 History cyanocobalamin (vitamin B-12) 1,000 mcg PO DAILY 04/09/24 04/09/24 History 1,000 mcg tablet (Vitamin B-12) famotidine 40 mg tablet 40 mg PO DAILY 04/09/24 04/09/24 History furosemide 40 mg tablet 40 mg PO DAILY 04/09/24 04/09/24 History gabapentin 600 mg tablet 600 mg PO QID 04/09/24 04/09/24 History lactulose 10 gram/15 mL oral 30 ml PO BID PRN Constipation 04/09/24 04/09/24 History solution levetiracetam 500 mg tablet 750 mg PO BID 04/09/24 04/09/24 History methadone 10 mg/5 mL oral solution 109 mg PO DAILY 04/09/24 04/09/24 History metoprolol succinate 25 mg 25 mg PO DAILY 04/09/24 04/09/24 History tablet,extended release 24 hr mirtazapine 15 mg tablet 15 mg PO HS 04/09/24 04/09/24 History omeprazole 40 mg capsule,delayed 40 mg PO DAILY 04/09/24 04/09/24 History release potassium chloride 20 mEq 20 meq PO DAILY 04/09/24 04/09/24 History tablet,extended release(part/cryst) sucralfate 100 mg/mL oral 10 ml PO QID 04/09/24 04/09/24 History suspension thiamine HCl (vitamin B1) 50 mg 100 mg PO DAILY 04/09/24 04/09/24 History tablet Patient History Medical History (Updated 04/10/24 @ 13:29 by Ifeoma López MD) Opioid use disorder, severe, on maintenance therapy Cirrhosis of liver without ascites Pancreatitis Delirium tremens Latent tuberculosis by blood test Suicide attempt Alcohol withdrawal seizure Surgical History S/P repair of hydrocele S/P laparoscopic cholecystectomy Family History Other Diabetes Heart disease Hypertension Social History Smoking Status: Current every day smoker Tobacco Type: Cigarettes Do You Dip or Chew Tobacco: No; Hx Alcohol Use: Yes Alcohol type: hard liquor Hx Substance Use: Yes Last Used Substance: Just Prior to Arrival Last Used Substance Other:: pt on methadone. States he did smoke marijuana recently Preferred Language: B[place] Communication Ability: Effective Patent Examiner Required: No Beliefs That Will Affect Care: None Current Living Situation: Family Other Information That Helps Us Care for You: No Feels Safe at Home: Yes Safety Concerns: Feels Safe At This Time Assistive Devices: None Physical Exam Psychiatric: Orientation: alert and oriented x 3 Apperance: appropriately dressed and appropriately groomed Eye Contact: good eye contact Motor Behavior: + tremor (with outstretched hands) Speech: normal rate/rhythm/volume of speech Affect: + anxious affect Mood: + anxious mood (slightly from withdrawal, he's finding prn medication helpful); no depressed mood Thought Process: linear/logical thought process Thought Content: reality based without delusions Suicidal Thoughts: denies suicidal thoughts Homicidal Thoughts: denies homicidal thoughts Hallucinations: no auditory hallucinations and no visual hallucinations Cognition: recent memory grossly intact, remote memory grossly intact, attention grossly intact and language grossly intact Estimated Intelligence: consistent with education level Insight: + fair insight Judgment: + fair judgement Vital Signs (Past 24 Hours): Last Vital Signs Temp 36.5 C 04/10/24 07:50 Pulse 82 04/10/24 07:50 Resp 20 04/10/24 07:50 BP 124/82 04/10/24 07:50 Pulse Ox 97 04/10/24 07:50 O2 Del Method Room Air 04/10/24 07:50 Results & Data (PSY) Medications Administered Cyanocobalamin (Cyanocobalamin (B-12) 500 Mcg Tablet) 1,000 mcg PO DAILY [facility] Stop: 05/10/24 08:59 Last Admin: 04/10/24 08:10 Dose: 1,000 mcg Documented By: CIELO Diazepam (Diazepam 5 Mg Tablet) 10 mg PO TID [facility] Stop: 05/10/24 09:54 Last Admin: 04/10/24 10:25 Dose: 10 mg Documented By: CIELO Enoxaparin Sodium (Enoxaparin Inj 40 Mg/0.4 Ml Syr) 40 mg SQ QAM [facility] Stop: 05/10/24 08:59 Last Admin: 04/10/24 08:10 Dose: 40 mg Documented By: CIELO Famotidine (Famotidine 40 Mg Tablet) 40 mg PO DAILY [facility] Stop: 05/10/24 08:59 Last Admin: 04/10/24 08:10 Dose: 40 mg Documented By: CIELO Furosemide (Furosemide 40 Mg Tab) 40 mg PO DAILY [facility] Stop: 05/10/24 08:59 Last Admin: 04/10/24 08:10 Dose: 40 mg Documented By: CIELO Thiamine HCl 100 mg/ Syringe 10 mls @ 2 mls/min IV QAM [facility] Stop: 05/10/24 08:59 Last Admin: 04/10/24 08:09 Dose: 2 mls/min Documented By: CIELO Folic Acid 1 mg/ Syringe 10 mls @ 5 mls/min IV QAM [facility] Stop: 05/10/24 08:59 Last Admin: 04/10/24 08:11 Dose: 5 mls/min Documented By: CIELO Lorazepam 1 mg/ Syringe 1 mls @ 2 mls/min IV UD PRN; Protocol PRN Reason: EtOH Withdrawal AWSS Score 6,7 Stop: 05/09/24 10:22 Last Admin: 04/09/24 23:30 Dose: 2 mls/min Documented By: Admin: 04/09/24 21:27 Dose: 2 mls/min Documented By: Admin: 04/09/24 16:40 Dose: 2 mls/min Documented By: DERICK Lorazepam 2 mg/ Syringe 2 mls @ 2 mls/min IV UD PRN; Protocol PRN Reason: EtOH Withdrawal AWSS Score 8,9 Stop: 05/09/24 10:22 Last Admin: 04/10/24 08:35 Dose: 2 mls/min Documented By: Admin: 04/09/24 18:03 Dose: 2 mls/min Documented By: CIELO Pantoprazole Sodium 40 mg/ (Syringe) 10 mls @ 5 mls/min IV DAILY@1100 [facility] Stop: 05/09/24 12:22 Last Admin: 04/10/24 10:26 Dose: 5 mls/min Documented By: Admin: 04/09/24 13:05 Dose: 5 mls/min Documented By: SHARLA Levetiracetam (Levetiracetam 250 Mg Tab) 750 mg PO BID [facility] Stop: 05/09/24 20:59 Last Admin: 04/10/24 08:09 Dose: 750 mg Documented By: Admin: 04/09/24 20:14 Dose: 750 mg Documented By: GUEST SERVICE TEAM LEADER Methadone HCl (Methadone Oral Soln 2 Mg/Ml) 109 mg PO DAILY [facility] Stop: 04/24/24 08:59 Last Admin: 04/10/24 08:39 Dose: 109 mg Documented By: CIELO Metoprolol Succinate (Metoprolol Succ 25mg Ext Rel Tab) 25 mg PO DAILY [facility] Stop: 05/10/24 08:59 Last Admin: 04/10/24 08:10 Dose: 25 mg Documented By: CIELO Mirtazapine (Mirtazapine Tab 15 Mg Tab) 15 mg PO HS [facility] Stop: 05/09/24 20:59 Last Admin: 04/09/24 21:26 Dose: 15 mg Documented By: GUEST SERVICE TEAM LEADER Patient's Own Controlled Med 1 ( Methadone) 1 each N/A DAILY [facility] Stop: 04/24/24 08:59 Last Admin: 04/10/24 08:40 Dose: 1 btl Documented By: CIELO Phenobarbital Sodium (Phenobarbital Sodium 65 Mg/Ml Vial) 65 mg IV Q6H PRN PRN Reason: AWSS greater than 8 Stop: 04/13/24 23:59 Last Admin: 04/09/24 14:33 Dose: 65 mg Documented By: REHAN Potassium Chloride (Potassium Chloride Crtab 20 Meq Tabcr) 20 meq PO DAILY [facility] Stop: 05/10/24 08:59 Last Admin: 04/10/24 08:10 Dose: 20 meq Documented By: CIELO Sucralfate (Sucralfate 1 Gm/10 Ml Udc) 1 gm PO QID [facility] Stop: 05/09/24 12:59 Last Admin: 04/10/24 08:10 Dose: 1 gm Documented By: Admin: 04/09/24 20:16 Dose: 1 gm Documented By: GUEST SERVICE TEAM LEADER Admin: 04/09/24 18:04 Dose: 1 gm Documented By: Admin: 04/09/24 13:05 Dose: 1 gm Documented By: SHARLA Coding Level of Care Code 15515 IN/OBS CONSULT LVL 4,60M Diagnoses Alcohol withdrawal F10.939 Complication of substance-induced condition: with unspecified complication Seizure R56.9 Alcohol use disorder, severe, dependence F10.20 Opioid use disorder, severe, on maintenance therapy F11.20
[2024-04-10] MEDS ORDERED: busPIRone 5 MG TAB PO PRN ×2 (13:38→14:17)
--- NOTE | 2024-04-10 14:02 | Hospitalist Progress Note ---
Date of Service April 10, 2024 Assessment & Plan (1) Seizure: (2) Alcohol withdrawal: (3) Alcohol abuse: Plan: This is a 33 y/o male with cirrhosis, hx EtOH withdrawal/DTs, EtOH abuse, portal HTN, HTN, and chronic methadone use who presented to the ED today after having a seizure this AM on the way to the methadone clinic. Pt has a history of alcohol-withdrawal seizures and DTs but denies history of epilepsy. Pt's last drink was a day prior to admission. Seizure this morning seems most likely related to EtOH withdrawal, missed dose(s) of Keppra and other medications. No acute pathology on CT brain. On scheduled Valium 10 mg 3 times daily. Also IV Ativan. Plan to taper down Valium as tolerated Restarted on home Keppra dose Seizure precaution wellbutrin stopped as it can lower the threshold of seizures. Psychiatry consulted; recommended to continue to hold Wellbutrin. Can restart once withdrawal is over (4) Methadone dependence: Plan: Chronic, stable Continue daily methadone as taking outpatient (5) Essential hypertension: Plan: Chronic, stable Continue metoprolol (6) Depression: Plan: Chronic, not well-controlled per patient Continue home meds hold wellbutrin Plan Full code DVT prophylaxis Lovenox Time spent evaluating patient, direct bedside care, chart review, placing orders, interpretation of diagnostic studies, discussion with consultants, patient, and family members, as well as other required patient management activities is 50 minutes Please note the above document was generated using voice recognition software. It may contain grammatical, syntax or spelling errors. Any formal questions or concerns about the content, text or information contained within the body of this dictation should be directly addressed to the provider for clarification Admission and Anticipated Discharge Date Admission Date: April 09, 2024 Subjective Seen and examined at bedside. He reports tremors, occasional hallucination and shakiness. Vital signs are stable Review of Systems 2 Review of Systems: All systems reviewed & are unremarkable except as noted in Subjective Physical Exam Physical Exam: General: Awake, alert oriented x 3; tremulous HEENT: PERRL, no scleral icterus, moist oral mucosa, tongue midline Neck: supple, trachea midline Heart: regular but tachycardic Lungs: CTA on the anterior bilaterally, no W/R/R Abdomen: soft, NT, +BS Extremities: distal pulses intact and equal, no pedal edema Skin: warm, dry, no jaundice Neurologic: tremulous, moving all extremities, speech slow but no dysarthria Psych: anxious, flat affect, limited insight Results & Data Results & Data Vital Signs (Past 12 Hours) Vital Signs Temp Pulse Resp BP Pulse Ox O2 Del Method 04/10/24 07:50 36.5 C 82 20 124/82 97 Room Air 04/10/24 02:24 36.5 C 80 18 116/75 96 Room Air (2) Alcohol withdrawal Complication of substance-induced condition: with unspecified complication Qualified Code(s): F10.939 - Alcohol use, unspecified with withdrawal, unspecified (6) Depression Active/Remission status: remission status unspecified Depression Type: major depressive disorder Major depression recurrence: unspecified whether recurrent Qualified Code(s): F32.9 - Major depressive disorder, single episode, unspecified
[2024-04-10] MEDS: GABAPENTIN 600 MG TAB PO SCH (16:05)
[2024-04-10] MEDS: MIRTAZAPINE TAB 15 MG TAB PO SCH (20:54)
[2024-04-11] MEDS ORDERED: PHENobarbitaL 30 MG TAB PO SCH (04:30)
[2024-04-11 08:18] LABS: Basophils # (auto) 0.03 K/uL (0.00-0.20); Basophils % (auto) 0.6 %; Eosinophils # (auto) 0.11 K/uL (0.00-0.50); Eosinophils % (auto) 2.3 %; Hematocrit (blood only) 37.2 % (42.0-52.0); Hemoglobin 12.4 g/dl (14.0-18.0); Immature Granulocytes # (auto) 0.01 K/uL (0.01-0.20); Immature Granulocytes % (auto) 0.2 %; Lymphocytes # (auto) 1.67 K/uL (1.20-3.40); Lymphocytes % (auto) 35.4 %; Mean Corpuscular Hemoglobin 32.5 pg (25.0-34.0); Mean Corpuscular Hgb Conc 33.3 g/dL (32.0-36.0); Mean Corpuscular Volume 97.4 fL (80.0-100.0); Monocytes # (auto) 0.34 K/uL (0.11-0.59); Monocytes % (auto) 7.2 %; Neutrophils # (auto) 2.56 K/uL (1.40-6.50); Neutrophils % (auto) 54.3 %; Platelet Count 247 K/uL (130-400); RDW Coefficient of Variation 15.3 % (11.5-14.5); RDW Standard Deviation 54.4 fL (36.4-46.3); Red Blood Count 3.82 M/uL (4.70-6.10); White Blood Count 4.72 K/ul (4.8-10.8)
[2024-04-11 08:44] LABS: Albumin Level 3.6 gm/dl (3.4-5.0); BUN Creatinine Ratio 9.5 (10-20); Bilirubin Direct 0.1 mg/dl (0-0.2); Bilirubin,Total 0.3 mg/dl (0.2-1.0); Calcium 8.7 mg/dl (8.6-10.3); Creatinine Clr Calc Pharmacy 167.1 ml/min; Est GFR (African American) 138.5 ml/min; Est GFR (Non-African American) 119.5 ml/min; Potassium 3.7 mmol/L (3.5-5.1); Total Protein 6.6 gm/dl (6.0-8.3)
[2024-04-11] MEDS: ACAMPROSATE CALCIUM 333 MG TAB PO SCH (10:38)
[2024-04-11 16:56] LABS: BUN Creatinine Ratio 8.6 (10-20); Creatinine Clr Calc Pharmacy 152.6 ml/min; Est GFR (African American) 133.5 ml/min; Est GFR (Non-African American) 115.1 ml/min; Magnesium 1.8 mg/dl (1.7-2.4); Potassium 3.6 mmol/L (3.5-5.1)
--- NOTE | 2024-04-11 17:17 | Hospitalist Progress Note ---
Date of Service April 11, 2024 Assessment & Plan (1) Alcohol withdrawal: Plan 33 y/o male with cirrhosis, hx EtOH withdrawal/DTs, EtOH abuse, portal HTN, HTN, and chronic methadone use who presented to the ED after having a seizure on the way to the methadone clinic. He is being managed for the following: Seizure Alcohol withdrawal Alcohol abuse Pt has a history of alcohol-withdrawal seizures and DTs but denies history of epilepsy. Pt's last drink was a day prior to admission. Seizure most likely related to EtOH withdrawal, missed dose(s) of Keppra and other medications. No acute pathology on CT brain. taper valium. Also IV Ativan prn per awss. Plan to taper down Valium as tolerated Restarted on home Keppra dose, continue. Seizure precaution wellbutrin stopped as it can lower the threshold of seizures. Psychiatry consulted; recommended to continue to hold Wellbutrin. Can restart once withdrawal is over Methadone dependence: Chronic, stable. Continue daily methadone as taking outpatient Essential hypertension: Chronic, stable. Continue metoprolol Depression: Chronic, not well-controlled per patient. Continue home meds. hold wellbutrin Full code DVT prophylaxis Lovenox Please note the above document was generated using voice recognition software. It may contain grammatical, syntax or spelling errors. Any formal questions or concerns about the content, text or information contained within the body of this dictation should be directly addressed to the provider for clarification Admission and Anticipated Discharge Date Admission Date: April 09, 2024 Subjective Seen and examined at bedside. He reports tremors, occasional hallucination and shakiness. Vital signs are stable Physical Exam Physical Exam: General: Awake, alert oriented x 3; tremulous HEENT: PERRL, no scleral icterus, moist oral mucosa, tongue midline Neck: supple, trachea midline Heart: regular but tachycardic Lungs: CTA on the anterior bilaterally, no W/R/R Abdomen: soft, NT, +BS Extremities: distal pulses intact and equal, no pedal edema Skin: warm, dry, no jaundice Neurologic: tremulous, moving all extremities, speech slow but no dysarthria Psych: anxious, flat affect, limited insight Results & Data Results & Data Vital Signs (Past 12 Hours) Vital Signs Temp Pulse Pulse Resp BP Pulse Ox O2 Del Method 04/11/24 15:51 36.7 C 74 16 135/90 04/11/24 15:23 36.7 C 66 16 147/96 H 99 Room Air 04/11/24 14:44 81 04/11/24 14:04 36.6 C 67 16 131/87 96 Room Air 04/11/24 12:37 36.5 C 84 16 111/82 98 Room Air 04/11/24 11:01 36.7 C 74 22 142/89 H 95 Room Air 04/11/24 09:21 77 20 132/85 97 Room Air 04/11/24 07:51 70 04/11/24 07:47 36.4 C L 73 20 144/89 H 99 Room Air (1) Alcohol withdrawal Complication of substance-induced condition: with unspecified complication Qualified Code(s): F10.939 - Alcohol use, unspecified with withdrawal, unspecified
[2024-04-11] MEDS: POTASSIUM CHLORIDE CRTAB 20 MEQ TABCR PO STA (17:41)
[2024-04-11] MEDS: diazePAM 5 MG TABLET PO SCH (21:00)
[2024-04-12 08:58] LABS: Basophils # (auto) 0.03 K/uL (0.00-0.20); Basophils % (auto) 0.6 %; Eosinophils # (auto) 0.19 K/uL (0.00-0.50); Eosinophils % (auto) 3.7 %; Hemoglobin 11.7 g/dl (14.0-18.0); Immature Granulocytes # (auto) 0.01 K/uL (0.01-0.20); Immature Granulocytes % (auto) 0.2 %; Lymphocytes # (auto) 2.35 K/uL (1.20-3.40); Lymphocytes % (auto) 45.6 %; Mean Corpuscular Hemoglobin 32.6 pg (25.0-34.0); Mean Corpuscular Hgb Conc 33.4 g/dL (32.0-36.0); Mean Corpuscular Volume 97.5 fL (80.0-100.0); Mean Platelet Volume 9.2 fL (9.4-12.4); Monocytes # (auto) 0.39 K/uL (0.11-0.59); Monocytes % (auto) 7.6 %; Neutrophils # (auto) 2.18 K/uL (1.40-6.50); Neutrophils % (auto) 42.3 %; Platelet Count 245 K/uL (130-400); RDW Coefficient of Variation 15.4 % (11.5-14.5); RDW Standard Deviation 55.4 fL (36.4-46.3); Red Blood Count 3.59 M/uL (4.70-6.10); White Blood Count 5.15 K/ul (4.8-10.8)
[2024-04-12 09:21] LABS: Albumin Level 3.9 gm/dl (3.4-5.0); BUN Creatinine Ratio 11.8 (10-20); Bilirubin Direct 0.1 mg/dl (0-0.2); Bilirubin,Total 0.3 mg/dl (0.2-1.0); Calcium 9.2 mg/dl (8.6-10.3); Creatinine Clr Calc Pharmacy 181.7 ml/min; Est GFR (African American) 143.4 ml/min; Est GFR (Non-African American) 123.7 ml/min; Phosphorus 3.9 mg/dl (2.5-4.9); Potassium 3.8 mmol/L (3.5-5.1)
--- NOTE | 2024-04-12 12:09 | Discharge Summary ---
Date of Service April 12, 2024 Admission HPI Per Admitting Provider This is a 33 y/o male with cirrhosis, hx EtOH withdrawal/DTs, EtOH abuse, portal HTN, HTN, and chronic methadone use who presented to the ED today after having a seizure this AM on the way to the methadone clinic. History is obtained from the patient and from review of [facility] records including recent admission to [facility]. Of note, he was admitted to [facility] 03/19-03/29/24 for alcohol withdrawal and delirium. He spent several days in the ICU and was on phenobarbital, Precedex, Seroquel and prn Geodon for agitation, DTs/alcohol withdrawal. Seen by addiction medicine and psychiatry who recommended starting acamprosate on discharge. Per records, pt was discharged to inpatient alcohol rehab at [facility]. It is unclear how long pt was at [facility] or why he was discharged. Review of prescriptions show multiple scripts sent by a provider at [facility] on 04/04. Pt, however, states that he was discharged directly home from [facility]. Since being home, pt reports immediately starting to drink EtOH again. He has been drinking a fifth of vodka daily. Yesterday, he drank less than usual because he was trying to cut back but noticed last night that he started to become tremulous. He did not have any alcohol this morning. On the way to the methadone clinic, he reportedly had a generalized tonic-clonic seizure in the van en route so EMS was called. He received lorazepam 2 mg in the field, which seemed to help with his symptoms. He denies a history of epilepsy, stating that his seizures have always been related to alcohol withdrawal. Review of medications prescribed last week shows a script for Keppra 750 mg BID, which pt reports not taking today or last night because of feeling ill. He reports significant depression, which he has been working with a therapist for and taking medications. He admits to suicidal ideations when he is intoxicated but denies at present repeatedly stating "I want to live" and "I just want to get better" throughout the conversation. Admission Exam Per Admitting Provider General: awake, alert, confused at times, NAD HEENT: PERRL, no scleral icterus, moist oral mucosa, tongue midline Neck: supple, trachea midline Heart: regular but tachycardic Lungs: CTA on the anterior bilaterally, no W/R/R Abdomen: soft, NT, +BS Extremities: distal pulses intact and equal, no pedal edema Skin: warm, dry, no jaundice Neurologic: tremulous, moving all extremities, speech slow but no dysarthria Psych: anxious, flat affect, limited insight Principal Diagnosis alc intoxication alcohol withdrawal Discharge Exam General: Awake, alert oriented x 3; tremulous HEENT: PERRL, no scleral icterus, moist oral mucosa, tongue midline Neck: supple, trachea midline Heart: regular but tachycardic Lungs: CTA on the anterior bilaterally, no W/R/R Abdomen: soft, NT, +BS Extremities: distal pulses intact and equal, no pedal edema Skin: warm, dry, no jaundice Neurologic: tremulous, moving all extremities, speech slow but no dysarthria Psych: anxious, flat affect, limited insight Discharge Data Allergies Allergy/AdvReac Type Severity Reaction Status Date / Time No Known Allergies Allergy Unverified 06/26/11 23:42 Consultations 04/09/24 09:50 ED Decision to Admit Stat 04/10/24 07:40 Consult Psychiatry Routine Ordered Studies 04/09/24 09:57 CT head/brain wo con Stat Hospital Course (1) Alcohol withdrawal: Plan 33 y/o male with cirrhosis, hx EtOH withdrawal/DTs, EtOH abuse, portal HTN, HTN, and chronic methadone use who presented to the ED after having a seizure on the way to the methadone clinic. He is being managed for the following: Seizure Alcohol withdrawal Alcohol abuse Pt has a history of alcohol-withdrawal seizures and DTs but denies history of epilepsy. Pt's last drink was a day prior to admission. Seizure most likely related to EtOH withdrawal, missed dose(s) of Keppra and other medications. No acute pathology on CT brain. taper valium. Also IV Ativan prn per awss. Plan to taper down Valium as tolerated Restarted on home Keppra dose, continue. Seizure precaution wellbutrin stopped as it can lower the threshold of seizures. Psychiatry consulted; recommended to continue to hold Wellbutrin. Can restart once withdrawal is over Methadone dependence: Chronic, stable. Continue daily methadone as taking outpatient Essential hypertension: Chronic, stable. Continue metoprolol Depression: Chronic, not well-controlled per patient. Continue home meds. hold wellbutrin Full code DVT prophylaxis Lovenox Patient is not yet medically stable to be discharged. Patient leaving AMA despite repeated counseling that he is still in withdrawal window and carries risks of arrhythmia/withdrawal seizures/. He understands that and he still wants to leave AMA. Patient advised to come back to the hospital if he has increasing shaking/tremors/withdrawal/seizures/not feeling well. Please note the above document was generated using voice recognition software. It may contain grammatical, syntax or spelling errors. Any formal questions or concerns about the content, text or information contained within the body of this dictation should be directly addressed to the provider for clarification Home Health Attestation I certify that this patient is under my care and that I, or a physicians surgeon assistant working with me, had a face to-face encounter that meets the home health [id number] encounter requirements with this patient. The encounter with the patient was in whole, or in part, for the following medical condition, which is the primary reason for home health care (list medical condition): I certify that, based on my findings, the following services are medically necessary home health services: My clinical findings support the need for the above services because: Further, I certify that my clinical findings support that this patient is homebound (i.e. absences from home require considerable and taxing effort and are for medical reasons or [facility]aritan services or infrequently or of short duration when for other reasons) because: Certification for Home Health Services: Based on the above findings, I certify that this patient is confined to the home and needs intermittent snf care, physical therapy and/or speech therapy or continues to need occupational therapy. The patient is under my care, and I have initiated the establishment of the plan of care. This patient will be followed by a physician who will periodically review the plan of care. Total Time Total Time Spent Total Time Spent (In Minutes): 45 Discharge Plan Discharge Items Patient Disposition: Against Medical Advice Reason For Visit: SEIZURE, ETOH WITHDRAWAL Condition on Discharge: Fair Activity: Resume your previous activity Non-emergency contact: Primary Care Provider Follow-up/Referrals: Dale Valiente PA-C [Primary Care Provider] - [employer] Provider Instructions: Patient leaving AMA despite repeated counseling that he is still in withdrawal window and carries risks of arrhythmia/withdrawal seizures/. He understands that and he still wants to leave AMA. Patient advised to come back to the hospital if he has increasing shaking/tremors/withdrawal/seizures/not feeling well. Pending Studies at Discharge: No Stand-Alone Forms: My [facility], Smoking Cessation Medications and DC Order Prescriptions: Continued levetiracetam 500 mg tablet 750 mg PO BID sucralfate 100 mg/mL suspension 10 ml PO QID cyanocobalamin (vitamin B-12) [Vitamin B-12] 1,000 mcg tablet 1,000 mcg PO DAILY potassium chloride 20 mEq tablet,ER particles/crystals 20 meq PO DAILY buspirone 10 mg tablet 10 mg PO BID PRN (Reason: Anxiety) mirtazapine 15 mg tablet 15 mg PO HS metoprolol succinate 25 mg tablet extended release 24 hr 25 mg PO DAILY thiamine HCl (vitamin B1) 50 mg tablet 100 mg PO DAILY acamprosate 333 mg tablet,delayed release (DR/EC) 666 mg PO TID lactulose 10 gram/15 mL solution 30 ml PO BID PRN (Reason: Constipation) furosemide 40 mg tablet 40 mg PO DAILY gabapentin 600 mg tablet 600 mg PO QID methadone 10 mg/5 mL Solution 109 mg PO DAILY famotidine 40 mg tablet 40 mg PO DAILY omeprazole 40 mg capsule,delayed release(DR/EC) 40 mg PO DAILY albuterol sulfate 90 mcg/actuation HFA aerosol inhaler 2 puff INHALATION Q4H PRN (Reason: Shortness Of Breath Or Wheezing) Held bupropion HCl 150 mg tablet extended release 24 hr 150 mg PO DAILY Hold Instructions: Resume on 04/16/24. Discharge Orders: Left Against Medical Advice (Routine); Ordered 04/12/24 Ordered By: Kj Bar Admission Data Admit Date/Time: 04/09/24 10:06 Attending Provider: Kj Bar Admit Provider: Ye Herbert Primary Care Provider: Dale Valiente Other Providers: Ye Herbert; Ifeoma López; Harinder Valentine; Óscar Centeno Jr; Jocy Jolley; Rebeca Estrella; Abraham Viera
[2024-04-12] MEDS ORDERED: PHENobarbitaL 30 MG TAB PO SCH (16:30)
[2024-04-13 13:52] LABS: 7-Aminoclonaz, Confirm NEGATIVE ng/mL (<25); Amobarbital, Urine Conf NEGATIVE ng/mL (<100); Butalbital, Urine NEGATIVE ng/mL (<100); Hydro-Alp Ur, GC/MS NEGATIVE ng/mL (<25); Hydroxyethylflurazepam, Conf NEGATIVE ng/mL (<50); Hydroxymidazolam Ur, GC/MS NEGATIVE ng/mL (<50); Hydroxytriazolam NEGATIVE ng/mL (<50); Lorazepam, Ur GC/MS 442 ng/mL (<50); MDA negative; MDEA negative; MDMA (Ecstasy) Urine, Confirm negative; Marijuana Quant, GCMS Urine 32 ng/mL (<5); Methadone, Ur Metabolite >10000 ng/mL (<100); Methadone, Ur Verification 7600 ng/mL (<100); Nordiazepam, Confirm 55 ng/mL (<50); Oxazepam Ur, GC/MS 493 ng/mL (<50); Pentobarbital, Urine Conf NEGATIVE ng/mL (<100); Phenobarbital, Urine >5000 ng/mL (<100); Secobarbital, Urine Conf NEGATIVE ng/mL (<100); Temazepam, Confirm 113 ng/mL (<50)
== END 2024-04-12 13:56 | disposition left against medical advice (07) | DRG 101 ==
LOC: ED 08:27 → EDINP 10:06 → SUATTDRO 10:06 → 2S 17:44